=== PATIENT | female | born 1990 | race Two or more races ===

== ENCOUNTER 2019-05-08 21:11 | Emergency (ER) | payer OTHER ==
[~2019-05-08] VITALS: Ht 154.9 cm; Wt 93.9 kg
[2019-05-09 00:31] VITALS: BP 138/81
--- NOTE | 2019-05-09 01:14 | PHYS DOC ---
Past Medical History Past Medical History: Asthma Past Surgical History: Alcohol Use: Occasionally Drug Use: None Adult General Chief Complaint Chief Complaint: SKIN PROBLEM HPI HPI 28-year-old female presents to ER for concerns that she may have a splinter in her right posterior knee. Patient reports today she was sitting on a wooden bench when she felt a poke and found she had a small piece of splinter exposed out of her right posterior knee. Patient reports she was able to remove that small piece however she feels the splinter broke and is still embedded in her skin. She denies inability to walk, numbness/tingling, or bleeding. LMP 04/29/19. Tetanus UTD within past 5 yrs. Review of Systems Review of Systems Musculoskeletal: Reports pain at puncture site rt posterior knee where she had pulled sm. piece of splinter out Integument: Reports concerns for splinter in rt posterior knee Neurologic: Denies focal weakness or sensory changes [] All other systems were reviewed and found to be within normal limits, except as documented in this note. Current Medications Current Medications Current Medications Medications (Trade) Dose Ordered Sig/Perlita Start Time Stop Time Status Last Admin Dose Admin Lidocaine HCl (Xylocaine-Mpf 1% 2ml Vial) 2 ml 1X ONCE 05/09/19 01:45 05/09/19 01:46 Allergies Allergies Allergies Coded Allergies Type Severity Reaction Last Updated Verified shrimp Allergy Severe 05/08/19 Yes Physical Exam Physical Exam Constitutional: Well developed, well nourished, anxious during exam- became tearful reporting she has stress with concerns of splinter and leaving to return home at 5 a.m., non-toxic appearance. [] HENT: Normocephalic, atraumatic, oropharynx moist, nose normal. [] Eyes: Pupils equal, conjunctiva normal, no discharge. [] Neck: Normal range of motion, supple Cardiovascular: Heart rate regular Lungs & Thorax: Resp. equal/nonlabored Abdomen: Bowel sounds normal, soft, no tenderness, no masses, no pulsatile masses. [] Skin: Warm, dry, no erythema Extremities: No cyanosis, no clubbing, ROM intact, no edema. 2+ dorsalis pedis/posterior tibial. Rt posterior knee with sm. puncture wound lateral side- no active bleeding. Tender on palp. with mild swelling at site- pt reports she has been squeezing on site. Full ROM. Steady unassisted gait Neurologic: Alert and oriented X 3, normal motor function, normal sensory function, no focal deficits noted. [] Psychologic: Affect normal, judgement normal, mood anxious Current Patient Data Vital Signs Vital Signs Date Time Temp Pulse Resp B/P (MAP) Pulse Ox O2 Delivery O2 Flow Rate FiO2 05/09/19 00:31 81 17 138/81 (100) 98 Room Air 05/08/19 21:40 97.7 97.7 EKG EKG [] Radiology/Procedures Radiology/Procedures Incision and Drainage with irrigation by me: Location: Rt lateral posterior knee Anesthesia: Local 1% Lidocaine 1mL Technique: #11 blade used to make small incision at site where pt had puncture wound from reported splinter. Instrumentation used to attempts to locate foreign body and superficial laceration site. No located FB. Complications: None. Neurovascularly intact post procedure 48 hour wound check. Scar minimization instructions given. Course & Med Decision Making Course & Med Decision Making Pertinent Imaging studies reviewed. (See chart for details) Patient was evaluated in the ER for concerns of splinter to right posterior knee. X-ray was obtained and reviewed by Dr. Addison with no obvious foreign body on images. Patient was adamant on having incision at site of puncture area from reported splinter so following discussion on risk of an incision as no certainty there was a foreign body at the site patient was still adamant on having an incision and attempts to locate splinter voicing understanding of risk. No palpable foreign body was located. Patient advised on home wound care and monitoring site for signs of infection. Patient advised on use of triple anabolic ointment to area. Education provided on signs and symptoms to return to ER. Discharge instructions were discussed. Patient to follow-up with primary care physician if symptoms persist or with any concerns. At time of discharge discussion patient was less anxious and in no distress. [] Dragon Disclaimer Dragon Disclaimer This electronic medical record was generated, in whole or in part, using a voice recognition dictation system. Departure Departure Impression: Primary Impression: Splinter Disposition: 01 HOME, SELF-CARE Condition: STABLE Referrals: NO PCP (PCP) Patient Instructions: Wood Splinters Additional Instructions: Tylenol and/or ibuprofen as needed for pain as directed on container. Warm compress to affected area every 2-3 hours for 20-30 minutes at a time. Monitor site for signs of infection. Avoid squeezing on area which can cause further skin irritation. If you continue to have concerns or problems follow-up with your primary care physician for reevaluation and further care- you may need to see a general surgeon if concerns continue regarding foreign body/splinter in the skin. CRISTA MULTANI APRN May 09, 2019 01:14
[2019-05-09] MEDS ORDERED: LIDOCAINE 1% PF 2 ML VIAL. INJ ONE (01:45)
--- NOTE | 2019-05-09 07:46 | RAD ---
Right knee 3 views. HISTORY: Concern for foreign body posterior knee 3 views were taken of the right knee. There is no fracture or osseous abnormality. There is no opaque foreign body. There is no joint effusion. IMPRESSION: 1. Negative right knee. Electronically signed by: Juvencio Cohen MD (05/09/2019 7:43 AM) [facility]
== END 2019-05-09 01:56 | disposition home or self-care (01) ==
LOC: ER 21:11
DX: S80.251A Superficial foreign body, right knee, initial encounter (principal); J45.909 Unspecified asthma, uncomplicated; Z98.890 Other specified postprocedural states; Z91.013 Allergy to seafood; X58.XXXA Exposure to other specified factors, initial encounter; Y93.89 Activity, other specified; Y92.89 Other specified places as the place of occurrence of the external cause; Y99.8 Other external cause status
CPT/HCPCS: 10060; 73562; 99284